=== PATIENT | female | born 1950 | race Caucasian/White ===

== ENCOUNTER → 2020-09-03 09:28 | Outpatient (CLI) | payer MEDICARE, OTHER, SELFPAY | PROVIDERS: PCP Nurse Practitioner Family; Referring Provider Nurse Practitioner Family; Visit Provider Nurse Practitioner Family | DX: M81.0 Age-related osteoporosis without current pathological fracture (principal); Z78.0 Asymptomatic menopausal state; Z87.891 Personal history of nicotine dependence | CPT/HCPCS: 77080 ==

== ENCOUNTER → 2020-09-19 08:09 | Outpatient (CLI) | payer MEDICARE, OTHER, SELFPAY ==
--- NOTE | 2020-09-19 | DI.MG.S_ITS ---
BILATERAL DIGITAL SCREENING MAMMOGRAM 3D/2D WITH CAD: 09/19/2020 CLINICAL: Routine screening. Comparison is made to exam dated: 04/21/2016 mammogram - outside location. The tissue of both breasts is predominantly fatty. Current study was also evaluated with a Computer Aided Detection (CAD) system. No significant masses, calcifications, or other findings are seen in either breast. There has been no significant interval change. IMPRESSION: NEGATIVE There is no mammographic evidence of malignancy. A 1 year screening mammogram is recommended. This exam was interpreted at Station ID: [id number]. NOTE: For mammograms, a report in lay terms will be sent to the patient. Approximately 15% of breast malignancies will not be visualized mammographically. In the management of a palpable breast mass, a negative mammogram must not discourage biopsy of a clinically suspicious lesion. Electronically Signed By: Eugene Snyder M.D., jr/edith:09/19/2020 10:02:09 letter sent: Normal Exam ACR BI-RADS Category 1: Negative [id number]
== END ==
PROVIDERS: PCP Nurse Practitioner Family; Referring Provider Nurse Practitioner Family; Visit Provider Nurse Practitioner Family
DX: Z12.31 Encounter for screening mammogram for malignant neoplasm of breast (principal)
CPT/HCPCS: 77063; 77067

== ENCOUNTER → 2022-11-11 12:12 | Outpatient (CLI) | payer MEDICARE, OTHER, SELFPAY ==
--- NOTE | 2022-11-11 | DI.MG.S_ITS ---
BILATERAL DIGITAL SCREENING MAMMOGRAM 3D/2D WITH CAD: 11/11/2022 CLINICAL: Routine screening. Family history of breast cancer. Comparison is made to exams dated: 09/19/2020 mammogram - [facility] and 04/21/2016 mammogram - outside location. There are scattered areas of fibroglandular density in both breasts (category b / 25%-50% glandular tissue). Current study was also evaluated with a Computer Aided Detection (CAD) system. No significant masses, calcifications, or other findings are seen in either breast. There has been no significant interval change. IMPRESSION: NEGATIVE There is no mammographic evidence of malignancy. A 1 year screening mammogram is recommended. Based on the Tyrer Cuzick model (a risk assessment model) the patient's lifetime risk is 4.2% and her 10 year risk is 3.4%. According to the ACR, ACS, and NCCN guidelines, an annual breast MRI exam along with mammogram is recommended if the patient's lifetime risk is 20% or greater. This exam was interpreted at Station ID: [id number]. NOTE: For mammograms, a report in lay terms will be sent to the patient. Approximately 15% of breast malignancies will not be visualized mammographically. In the management of a palpable breast mass, a negative mammogram must not discourage biopsy of a clinically suspicious lesion. Electronically Signed By: Addi dubois/edith:11/11/2022 15:01:08 letter sent: Normal Exam ACR BI-RADS Category 1: Negative [id number]
--- NOTE | 2022-11-11 13:09 | DI.DEXA.S_ITS ---
Bone Density Report Name: JAZZ OLIVERA Age: 71 Sex: Female Ethnicity: White Date of : 1950 Indication: postmenopausal osteoporosis; monitoring treatment; Referring Provider: DHRUV GRAMAJO Study: Bone densitometry was performed. Exam Date: November 11, 2022 Accession number: [id number] Bone Density: Region BMD T-score Z-score Classification AP Spine(L2, L3, L4) 0.876 -1.8 0.6 Osteopenia Femoral Neck (Left) 0.553 -2.7 -0.7 Osteoporosis Total Hip (Left) 0.660 -2.3 -0.6 Osteopenia Total Forearm (Left) 0.377 -3.7 -1.4 Osteoporosis 1/3 Forearm (Left) 0.481 -3.5 -1.1 Osteoporosis UD Forearm (Left) 0.257 -3.2 -1.5 Osteoporosis World Health Organization criteria for BMD impression classify patients as: Normal (T-score at or above -1.0), Osteopenia (T-score between -1.0 and -2.5), or Osteoporosis (T-score at or below -2.5). 10-year Fracture Risk: FRAX not reported because: Some T-score for Spine Total or Hip Total or Femoral Neck at or below -2.5 Treated for osteoporosis Previous Exams: -- Region Exam Age BMD T-score BMD Change BMD Change Date g/cm2 vs Baseline vs Previous -- AP Spine (L2-L4) 11/11/2022 71 0.876 -1.8 -0.013 (-1.4%)# -0.013 (-1.4%)# 09/03/2020 69 0.888 -1.7 Total Hip(Left) 11/11/2022 71 0.660 -2.3 0.040 (6.5%)# 0.040 (6.5%)# 09/03/2020 69 0.619 -2.6 -- *Denotes significance at 95% confidence level, LSC for AP Spine = 0.022 g/cm2, LSC for Total Hip = 0.027 g/cm2 # Denotes dissimilar scan types or analysis methods Impression: The patient has osteoporosis, based on the Left Femoral Neck T-score. No significant bone loss was observed. Discussion: PATIENT UNDER TREATMENT WITH NO SIGNIFICANT BMD LOSS SINCE LAST EXAM. In an untreated patient, BMD typically declines with age. A lack of decline or gain is usually a sign that treatment is efficacious and fracture risk is reduced. It is important to ask patients whether they are taking their medications and to encourage continued and appropriate compliance with their osteoporosis therapies to reduce fracture risk. It is also important to review their risk factors and encourage appropriate calcium and vitamin D intakes, exercise, fall prevention and other lifestyle measures. Follow-Up: Consider a repeat BMD and Vertebral Fracture Assessment (VFA) exam in 2 years or sooner if medically necessary, to reassess this patient's status. Reported by: JENNYFER HAWKINS M.D. on 11/11/2022 1:26:00 PM.
== END ==
PROVIDERS: PCP Family Medicine; Referring Provider Family Medicine; Visit Provider Family Medicine
DX: Z12.31 Encounter for screening mammogram for malignant neoplasm of breast (principal); Z13.820 Encounter for screening for osteoporosis; Z80.3 Family history of malignant neoplasm of breast; M81.0 Age-related osteoporosis without current pathological fracture; Z78.0 Asymptomatic menopausal state
CPT/HCPCS: 77063; 77067; 77080

== ENCOUNTER → 2024-12-21 12:30 | Outpatient (CLI) | payer MEDICARE, OTHER, SELFPAY ==
--- NOTE | 2024-12-21 12:33 | DI.RAD.S_ITS ---
PROCEDURE: XR DEXA AXIAL SKELETON INDICATIONS: osteoporosis screening COMPARISON: [facility], CR, XR DEXA AXIAL SKELETON, 11/11/2022, 13:09. FINDINGS: Lumbar Spine: Bone mineral density 0.842 (previously 0.876) g/cm2, T score -2.2 (previously -1.8). Left Femoral Neck: Bone mineral density 0.584 (previously 0.553) g/cm2, T score -2.4 (previously -2.7). Left Hip: Bone mineral density 0.657 (previously 0.660) g/cm2, T score -2.3 (previously -2.3). Fracture Risk Calculation (when applicable): 10-year fracture risk of a major osteoporotic fracture 13 percent and of a hip fracture 4.3 percent. (T score greater or equal to -1.0 to: NORMAL) (T score from -1.1 to -2.4: OSTEOPENIA) (T score less than or equal to -2.5: OSTEOPOROSIS) IMPRESSION: Osteopenia--- recommend repeat DEXA in 2-3 years for reassessment. Follow-up guidelines as follows: Osteoporosis: Consider a repeat DEXA and Vertebral Fracture Assessment (VFA) exam in 2 years or sooner if medically necessary, to reassess this patient's status. Osteopenia: Consider a repeat DEXA in 2-3 years to reassess this patient's status, or if there is a new clinical indication. Normal: Consider a repeat DEXA in 5 years or sooner, or if there is a new clinical indication. All treatment decisions require clinical judgment and consideration of individual patient factors, including patient preferences, comorbidities, previous drug use, risk factors not captured in the FRAX model (e.g., frailty, falls, vitamin D deficiency, increased bone turnover, interval significant decline in bone density ) and possible under- or over-estimation of fracture risk by FRAX. In addition, the NOF Guide recommends that FDA-approved medical therapies be considered in postmenopausal women and men age >= 50 years with a: * Hip or vertebral (clinical or morphometric) fracture * T-score of <=-2.5 at the spine or hip * Ten-year fracture probability by FRAX of >= 3% for hip fracture or >=20% for major osteoporotic fracture. Dictated by: Eleazar Stoll M.D. on 12/21/2024 at 19:46 Approved by: Eleazar Stoll M.D. on 12/21/2024 at 19:50
== END ==
LOC: RAD 12:32
PROVIDERS: PCP Family Medicine; Referring Provider Family Medicine; Visit Provider Family Medicine
DX: M85.89 Other specified disorders of bone density and structure, multiple sites (principal); Z78.0 Asymptomatic menopausal state
CPT/HCPCS: 77080

== ENCOUNTER → 2025-05-16 09:03 | Outpatient (CLI) | payer MEDICARE, OTHER, SELFPAY | PROVIDERS: PCP Family Medicine; Visit Provider Urology | DX: R39.9 Unspecified symptoms and signs involving the genitourinary system (principal); Z87.448 Personal history of other diseases of urinary system | CPT/HCPCS: 87086 ==

== ENCOUNTER → 2025-05-27 09:09 | Outpatient (CLI) | payer MEDICARE, OTHER, SELFPAY ==
--- NOTE | 2025-05-27 09:10 | DI.CT.S_ITS ---
PROCEDURE: CT KIDNEY URETER BLADDER (KUB) INDICATIONS: 74 y/o F w/ right staghorn calculus, questionable XGP TECHNIQUE: CT of the abdomen and pelvis was obtained without intravenous contrast. Coronal and sagittal reformats were performed. For radiation dose reduction, the following was used: automated exposure control, adjustment of mA and/or kV according to patient size. COMPARISON: None. FINDINGS: Quality: Diagnostic. Lower Chest: Unremarkable. Abdomen: Liver: 1.3 cm indeterminate hypoattenuating lesion in segment 8 which cannot be classified as a cyst on this examination. Gallbladder and bile ducts: Unremarkable. Pancreas: Unremarkable. Spleen: Unremarkable. Adrenal Glands: Unremarkable. Kidneys and Ureters: Right staghorn calculi in the renal pelvis. The largest contiguous calcification measures 4.1 cm. Simple renal cyst in the right kidney midpole. Single calcification in the left kidney measuring 1.1 cm. No hydronephrosis. Ureters are decompressed bilaterally. Calcifications are noted in the pelvis along the course of the ureters, but the ureters cannot be discretely identified due to compactness of bowel and streak artifact from right hip arthroplasty. Consequently, I cannot distinguish between urinary calculi and vascular calcifications in the pelvis. Stomach: Unremarkable. Bowel: No abnormal dilation. No wall thickening. Normal appendix. Peritoneum: No free fluid. No free air. Pelvis: Reproductive: Unremarkable. Bladder: Unremarkable. Other: Lymphatic: No adenopathy. Vasculature: No aortic aneurysm. Severe calcified atherosclerotic plaques. Abdominal wall: Skin tract with granulation tissue or inflammation extending towards the abdominal wall musculature with no violation visible likely representing gastrostomy tube tract. Bones: No aggressive osseous lesion. Severe degenerative changes of the spine and left hip. Right total hip arthroplasty without hardware failure. Multiple incompletely healed rib fractures on the left. Incompletely healed superior endplate compression fracture at L2. Age-indeterminate inferior endplate fracture at L4. Probable fracture at T11, incompletely imaged. IMPRESSION: Multiple incompletely healed fractures: T11, L2, L4, multiple lower left ribs . Staghorn renal calculi without hydronephrosis or hydroureter. Cannot exclude distal ureteral stones. Indeterminate right liver lesion. Further evaluation with MRI recommended. Dictated by: Jesus Burnette M.D. on 05/27/2025 at 9:31 Approved by: Jesus Burnette M.D. on 05/27/2025 at 10:00
== END ==
LOC: CT 09:09
PROVIDERS: PCP Family Medicine; Referring Provider Urology; Visit Provider Urology
DX: N20.0 Calculus of kidney (principal); K76.9 Liver disease, unspecified; S22.42XG Multiple fractures of ribs, left side, subsequent encounter for fracture with delayed healing; S32.028G Other fracture of second lumbar vertebra, subsequent encounter for fracture with delayed healing; S32.048 Other fracture of fourth lumbar vertebra; Z96.641 Presence of right artificial hip joint
CPT/HCPCS: 74176

== ENCOUNTER → 2025-06-13 13:59 | Outpatient (CLI) | payer MEDICARE, OTHER, SELFPAY ==
--- NOTE | 2025-06-13 14:02 | DI.RAD.S_ITS ---
PROCEDURE: XR KUB INDICATIONS: Kidney stone TECHNIQUE: One view of the abdomen acquired. COMPARISON: [facility], CT, CT KIDNEY URETER BLADDER (KUB), 05/27/2025, 9:09. FINDINGS: Surgical changes and devices: Prior right total hip arthroplasty.. Bowel: Bowel gas pattern is nonobstructive. Mild fecal stasis in the colon is seen. Soft tissues: Multiple calcifications are seen projecting in right renal fossa and measures up to 1.9 x 1.9 cm in size consistent with CT findings of of multiple right renal stones. Small 6 mm calcification is also seen projecting in left renal fossa. Likely phleboliths are seen in bilateral lower pelvis. Visualized solid organ contours appear normal in size. Bones: No suspicious bony lesions. IMPRESSION: Bilateral renal calculi as described above, better evaluated on previous CT study. Likely phleboliths in lower pelvis. Dictated by: Brandyn Shin M.D. on 06/14/2025 at 11:38 Approved by: Brandyn Shin M.D. on 06/14/2025 at 11:39
== END ==
LOC: RAD 14:01
PROVIDERS: PCP Family Medicine; Referring Provider Urology; Visit Provider Urology
DX: N20.0 Calculus of kidney (principal)
CPT/HCPCS: 74018